=== PATIENT | female | born 1945 ===

== ENCOUNTER 2018-01-20 10:37 | Emergency (ER) | payer BC ==
[2018-01-20 10:57] VITALS: BP 149/80
--- NOTE | 2018-01-20 11:11 | UC ---
General HPI - HPI Summary HPI Summary: pt is c/o feeling lightheaded. she describes it as being dizzy and balance is off. she denies feeling like going to pass out. no associated cp or sob. had 1st episode in dentist chair when she turned her head. it occured again this am when she sat up. she admits that if she is lying still the symptoms resolve. pt states she checked her BP at home and it was high as well. she was speaking to her sister who "got me all worked up" so she came here. no ADAMS, visual changes, numb/weakness. - History of Current Complaint Stated Complaint: LIGHT HEADED, NAUSEA, DIZZY Time Seen by Provider: 01/20/18 10:47 Hx Obtained From: Patient Current Severity: None Pain Intensity: 0 Associated Signs & Symptoms: Positive: Dizziness, Nausea. Negative: Chest Pain , Fever, Headache, SOB - Allergy/Home Medications Allergies/Adverse Reactions: Allergies Allergy/AdvReac Type Severity Reaction Status Date / Time No Known Allergies Allergy Verified 01/20/18 10:44 Home Medications: Home Medications Tamoxifen TAB* [Nolvadex 10 MG*] 20 mg PO DAILY 01/20/18 [History Confirmed ] Venlafaxine TAB (NF) [Effexor TAB (NF)] 37.5 mg PO DAILY 01/20/18 [History Confirmed 01/20/18] PMH/Surg Hx/FS Hx/Imm Hx - Additional Past Medical History Additional PMH: CA Psychological History: Anxiety, Depression - Surgical History Surgical History: Yes Surgery Procedure, Year, and Place: lumpectomy. masectomy - Social History Occupation: Retired Alcohol Use: None Substance Use Type: None Smoking Status (MU): Never Smoked Tobacco Review of Systems ENT: Negative Gastrointestinal: Nausea Neurovascular: Other - dizzy Psychological: Anxious Is Patient Immunocompromised?: No All Other Systems Reviewed And Are Negative: Yes Physical Exam Triage Information Reviewed: Yes Appearance: Well-Appearing Vital Signs: Initial Vital Signs Temp 99.2 F 01/20/18 10:52 Pulse 93 01/20/18 10:52 Resp 20 01/20/18 10:52 BP 149/80 01/20/18 10:52 Pulse Ox 100 01/20/18 10:52 Vital Signs Reviewed: Yes Eyes: Positive: Conjunctiva Clear, Other: - PERRL, EOMI. ENT: Positive: Pharynx normal, TMs normal. Negative: Nasal congestion, Nasal drainage Neck: Positive: Supple, Nontender, No Lymphadenopathy, Other: - No carotid bruits. Respiratory: Positive: Lungs clear, Normal breath sounds Cardiovascular: Positive: RRR, No Murmur, Pulses Normal Abdomen Description: Positive: Nontender, No Organomegaly, Soft. Negative: Distended Bowel Sounds: Positive: Present Musculoskeletal: Positive: Strength Intact, ROM Intact, No Edema Neurological: Positive: Alert, Muscle Tone Normal, Other: - CN 2-12 grossly intact. Steady Gait. Negative rhomberg and pronator drift. Rapid-alernating moves with ease. Able to heel toe walk. Rapid turn of head reproduced symptoms R >L. Psychological: Positive: Age Appropriate Behavior Skin Exam: Normal Diagnostics - Laboratory Diagnostic Studies Completed/Ordered: FS BS=wnl, ekg=unremarkable - EKG Cardiac Rhythm: Sinus: Normal - q waves III, AVF Ectopy: None ST Segment: Normal Course/Dx - Course Course Of Treatment: very well appearing elderly female with reassuring exam and unremarkable FSBS and EKG. able to reproduce her symptoms with rapid turn of head and then when still symptoms resoved. c/w peripheral vertigo. will tx mecline. BP here 149/80. pt had called her pcp. they are able to see her this week in f/u. they can recheck her BP there. - Differential Dx - Multi-Symptom Provider Diagnoses: vertigo Discharge - Sign-Out/Discharge Documenting (check all that apply): Discharge - Discharge Plan Condition: Stable Disposition: HOME Prescriptions: Meclizine TAB* [Antivert 12.5 TAB*] 25 mg PO TID PRN #10 tab PRN Reason: Dizziness Patient Education Materials: Vertigo (ED), Hypertension (ED) Referrals: Celestina Bauman [Primary Care Provider] - 2 Days - Billing Disposition and Condition Condition: STABLE Disposition: HOME
== END 2018-01-20 11:44 | disposition home or self-care (01) ==
LOC: UCCORT 10:37
DX: R42 Dizziness and giddiness (principal)
CPT/HCPCS: 93005; 99202; G0463